=== PATIENT | female | born 1995 | race Caucasian/White ===

== ENCOUNTER 2017-06-17 15:33 | Emergency (ER) | payer OTHER ==
[2017-06-17 15:46] VITALS: BMI 35.2
[2017-06-17 15:48] VITALS: BP 113/75; PULSE 81; RESP 20; TEMP 97.7; O2SAT 98
--- NOTE | 2017-06-17 16:12 | C.PDOC ---
History Of Present Illness 22-year-old female, presents to the emergency department with complaints of vaginal pain. Patient states she fell onto the table while at home, an hour prior to arrival, sustaining an injury to her vaginal area. Patient states she noted some blood on her underwear afterward, prompting visit. Denies any head/ neck injuries. Time Seen by Provider: 06/17/17 15:54 Chief Complaint (Nursing): Female Genitourinary History Per: Patient History/Exam Limitations: no limitations Past Medical History Reviewed: Historical Data, Nursing Documentation, Vital Signs Vital Signs: Last Vital Signs Temp 97.7 F 06/17/17 15:45 Pulse 81 06/17/17 15:45 Resp 20 06/17/17 15:45 BP 113/75 06/17/17 15:45 Pulse Ox 98 06/17/17 16:19 Surgical History: (x 1) - [facility] Procedures LOW CERVICAL (05/11/13) OTHER SKIN & SUBQ I D (02/06/14) Family History: States: No Known Family Hx - Social History Hx Tobacco Use: No Hx Alcohol Use: No Hx Substance Use: No - Immunization History Hx Tetanus Toxoid Vaccination: Yes Hx Influenza Vaccination: Yes Hx Pneumococcal Vaccination: Yes Review Of Systems Genitourinary: Positive for: Other (vaginal pain) Neurological: Negative for: Weakness, Numbness, Headache, Dizziness Physical Exam - Physical Exam Appears: Non-toxic, No Acute Distress Skin: Normal Color, Warm, Dry, No Rash Head: Atraumatic, Normacephalic Eye(s): bilateral: Normal Inspection, EOMI Nose: Normal Oral Mucosa: Moist Neck: Normal ROM Chest: Symmetrical Gastrointestinal/Abdominal: Soft, No Tenderness, No Guarding Back: Normal Inspection, No Vertebral Tenderness, No Paraspinal Tenderness Pelvic: Other (Superficial linear abrasion to left labia majora. 3mm superifical laceration to left labia minora with dry blood) Extremity: Normal ROM, No Deformity Neurological/Psych: Oriented x3, Normal Speech Gait: Steady ED Course And Treatment O2 Sat by Pulse Oximetry: 98 Pulse Ox Interpretation: Normal (RA) Medical Decision Making Medical Decision Making: Patient with superficial laceration to inner vaginal area, which will heal without laceration repair. Patient instructed to take Advil/Tylenol at home for pain. She was instructed to keep the area clean. Patient agreeable with plan. All questions answered. 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 I have reviewed the chart and agree that the record accurately reflects my personal performance of the history, physical exam, medical decision making, and the department course for this patient. I have also personally directed, reviewed, and agree with the discharge instructions and disposition.
== END 2017-06-17 16:41 | disposition home or self-care (01) ==
LOC: C.ER 15:33
DX: S31.41XA Laceration without foreign body of vagina and vulva, initial encounter (principal); W08.XXXA Fall from other furniture, initial encounter; Y92.009 Unspecified place in unspecified non-institutional (private) residence as the place of occurrence of the external cause

== ENCOUNTER 2018-06-17 18:44 | Emergency (ER) | payer SELFPAY ==
[2018-06-17 18:45] VITALS: BMI 35.2
[2018-06-17 20:31] VITALS: RESP 20
[2018-06-17 20:51] VITALS: BP 114/77; PULSE 81; TEMP 98.4; O2SAT 16
--- NOTE | 2018-06-17 21:04 | C.PDOC ---
History Of Present Illness Patient is a 23 year old female who presents to the ED for evaluation after she tripped and fell causing her to twist her right ankle. She denies any weakness or numbness. Time Seen by Provider: 06/17/18 19:22 Chief Complaint (Nursing): Lower Extremity Problem/Injury History Per: Patient History/Exam Limitations: no limitations Onset/Duration Of Symptoms: Hrs Current Symptoms Are (Timing): Still Present Recent travel outside of the [place]: No Additional History Per: Patient - Ankle/Foot Description Of Injury: Fell Past Medical History Reviewed: Historical Data, Nursing Documentation, Vital Signs Vital Signs: Last Vital Signs Temp 98.4 F 06/17/18 20:31 Pulse 81 06/17/18 20:31 Resp 20 06/17/18 20:31 BP 114/77 06/17/18 20:31 Pulse Ox 16 L 06/17/18 20:31 - Medical History PMH: No Chronic Diseases Denies: Chronic Kidney Disease Surgical History: (x 1) - [facility] Procedures LOW CERVICAL (05/11/13) OTHER SKIN & SUBQ I D (02/06/14) Family History: States: Unknown Family Hx - Social History Hx Tobacco Use: No Hx Alcohol Use: Yes Hx Substance Use: No - Immunization History Hx Tetanus Toxoid Vaccination: Yes Hx Influenza Vaccination: Yes Hx Pneumococcal Vaccination: No Review Of Systems Musculoskeletal: Positive for: Foot Pain (right ankle) Neurological: Negative for: Weakness, Numbness Physical Exam - Physical Exam Appears: Non-toxic, No Acute Distress Skin: Normal Color, Warm, Dry Head: Atraumatic, Normacephalic Chest: Symmetrical, No Deformity Cardiovascular: Rhythm Regular Respiratory: Normal Breath Sounds Extremity: Tenderness (right lateral malleolus), No Calf Tenderness, Capillary Refill (<2 sec), No Deformity (gross), Swelling (right lateral malleolus) Pulses: Left Dorsalis Pedis: Normal, Right Dorsalis Pedis: Normal Neurological/Psych: Oriented x3, Normal Motor (right ankle), Normal Sensation (right ankle) ED Course And Treatment O2 Sat by Pulse Oximetry: 16 (on RA) Progress Note: Plan: Tylenol 975mg PO. Xray RT Ankle. Xray negative for fracture. Allan wrap and air cast with crutches applied by CP and checked by me. Crutch instruction. Patient advised to follow up with orthopedics. Disposition Counseled Patient/Family Regarding: Diagnosis, Need For Followup - Disposition Referrals: [facility] [Outside] Disposition: HOME/ ROUTINE Disposition Time: 20:58 Condition: STABLE Additional Instructions: Please follow up with PMD Take medications as directed Return to ER if worse Prescriptions: Ibuprofen [Motrin] 600 mg PO Q6H #30 tab Instructions: Ankle Sprain (DC) Forms: [employer] ([place]i), Work Excuse - Clinical Impression Clinical Impression: Right ankle sprain - PA / GROUND [employer]ER / Resident Statement MD/DO has examined the patient and agrees with the treatment plan. - Scribe Statement The provider has reviewed the documentation as recorded by the Kyung Murphy All medical record entries made by the Apriliblbaze were at my direction and personally dictated by me. I have reviewed the chart and agree that the record accurately reflects my personal performance of the history, physical exam, medical decision making, and the department course for this patient. I have also personally directed, reviewed, and agree with the discharge instructions and disposition.
--- NOTE | 2018-06-18 12:11 | RAD ---
Date of service: 06/17/2018 PROCEDURE: Right Ankle Radiographs. HISTORY: pain, swelling s/p fall COMPARISON: None available. TECHNIQUE: 3 views obtained. FINDINGS: BONES: Normal. No fracture. JOINTS: Normal. No osteoarthritis. Ankle mortise maintained. Talar dome intact SOFT TISSUES: Soft tissue swelling noted at lateral malleolus. OTHER FINDINGS: None. IMPRESSION: No evidence of acute fracture or dislocation.
== END 2018-06-17 21:16 | disposition home or self-care (01) ==
LOC: C.ER 18:44
DX: S93.401A Sprain of unspecified ligament of right ankle, initial encounter (principal); W01.0XXA Fall on same level from slipping, tripping and stumbling without subsequent striking against object, initial encounter